=== PATIENT | female | born 1980 | race Hispanic/Latino ===

== ENCOUNTER → 2017-12-03 | Outpatient (CLI) | payer OTHER ==
[~2017-12-03] MED LIST: ESOM40CA PO; LABE100T PO
[2017-12-03 08:09] LABS: BASOPHILS % (AUTO) 0.8 % (0.0-5.0); EOSINOPHILS % (AUTO) 2.5 % (0.0-8.0); MEAN CORPUSCULAR HEMOGLOBIN 28.3 pg (27.0-33.0); MEAN CORPUSCULAR VOLUME 83.3 fL (79-99); MONOCYTES % (AUTO) 8.5 % (3.0-13.0); NEUTROPHILS % (AUTO) 50.2 % (40.0-77.0); PLATELET COUNT (AUTO) 271 K/uL (130-400); RED BLOOD CELL COUNT(AUTO) 4.32 MIL/uL (4.00-5.50); RED CELL DISTRIBUTION WIDTH 13.1 % (11.0-15.5); WHITE BLOOD COUNT (AUTO) 6.8 K/uL (4.8-10.8)
[2017-12-03 08:17] LABS: HEMOGLOBIN A1C 6.1 % (4.0-6.0)
[2017-12-03 08:53] LABS: CREATININE 0.7 mg/dL (0.5-1.5); POTASSIUM 3.6 mmol/L (3.5-5.1)
[2017-12-03 09:07] LABS: ALBUMIN 3.3 g/dL (3.5-5.0); BILIRUBIN,TOTAL 0.3 mg/dL (0.2-1.0); THYROID STIMULATING HORMONE 2.34 uIU/mL (0.36-3.74); TOTAL PROTEIN, SERUM 6.9 g/dL (6.0-8.3)
== END ==
LOC: LAB 07:43
PROVIDERS: ATTEND Nurse Practitioner Adult Health
DX: Z00.00 Encounter for general adult medical examination without abnormal findings (principal)
CPT/HCPCS: 36415; 80053; 80061; 82306; 83036; 84443; 85025

== ENCOUNTER 2019-03-08 05:38 | Day surgery (SDC) | payer BC, OTHER ==
[~2019-03-08] VITALS: Ht 152.4 cm; Wt 97.5 kg
[2019-03-08] VITALS (7 sets, daily range): BP systolic 100–116; BP diastolic 66–75
[~2019-03-08 05:38] MED LIST changes: +ASPI-1181 PO; -ESOM40CA PO; -LABE100T PO; +LABE100T5 PO; +PNV1TABL77 PO
[2019-03-08] MEDS ORDERED: LACTATED RINGERS 1000ML 1,000 ML IV PRN (05:47)
[2019-03-08 06:23] LABS: HEMATOCRIT 39.3 % (36-48); MEAN CORPUSCULAR HEMOGLOBIN 30.2 pg (27.0-33.0); MEAN CORPUSCULAR HGB CONC 33.9 g/dL (32.0-36.0); MEAN CORPUSCULAR VOLUME 89.1 fL (79-99); NUCLEATED RED BLOOD CELLS 0.1 % (0.0-0.19); PLATELET COUNT (AUTO) 279 K/uL (130-400); RED BLOOD CELL COUNT(AUTO) 4.41 MIL/uL (4.00-5.50); RED CELL DISTRIBUTION WIDTH 13.4 % (11.0-15.5); WHITE BLOOD COUNT (AUTO) 6.9 K/uL (4.8-10.8)
[2019-03-08] MEDS ORDERED: PROPOFOL 10 MG/ML 20ML VIAL IV ONE (07:07)
[2019-03-08] MEDS ORDERED: FENTANYL CITRATE PF 50 MCG/1 ML 2ML VIAL ONE (07:07)
[2019-03-08] MEDS ORDERED: LIDOCAINE PF 2% 5ML ABBOJECT ONE (07:07)
[2019-03-08] MEDS ORDERED: CEFAZOLIN SODIUM 1 GM VIAL IVP ONE (07:10)
[2019-03-08] MEDS ORDERED: CEFAZOLIN SODIUM 1 GM VIAL ONE (07:16)
[2019-03-08] MEDS ORDERED: CALDOLOR 800MG+NS 250ML 250 ML IV ONE (07:24)
[2019-03-08] MEDS ORDERED: OXYTOCIN 10 USP UNITS/ML ONE (07:30)
[2019-03-08] MEDS ORDERED: GLYCOPYRROLATE 1 MG/5 ML SYRINGE ONE (07:34)
[2019-03-08] MEDS ORDERED: MEPERIDINE-PF 25 MG/ML SYG ONE (07:57)
--- NOTE | 2019-03-08 08:20 | NUR ---
RECEIVE PT RECEIVED FROM LABOR AND DELIVERY VIA STRETCHER. AWAKE, DROWSY, ORIENTED X3. PT STABLE, COMPLAINS OF SOME CRAMPING, TOLD PT PAIN MED CALDOLOR IS INFUSING, POSITIONED COMFORTABLY. OB PAD DRY AND IN PLACE, VERY SCANT DISCHARGE NOTED. WILL CONTINUE TO MONITOR PT.
--- NOTE | 2019-03-08 09:00 | NUR ---
RESUME HOME MEDS REPORTED TO DR. PARKS PT'S HOME MEDS. PER DR. PARKS, PT MAY RESUME ALL HER HOME MEDICATIONS
[2019-03-08] MEDS ORDERED: METF-444 PO (09:03)
--- NOTE | 2019-03-08 10:20 | NUR ---
DISCHARGE PT DISCHARGED VIA WHEELCHAIR WITH . PT STABLE. NO COMPLAINTS MADE. OB PAD SCANT AMOUNT VAGINAL BLEEDING NOTED. PT TOLERATED ORAL FLUIDS WELL. DISCHARGE INSTRUCTIONS GIVEN TO AND PT, BOTH VERBALIZED UNDERSTANDING.
== END 2019-03-08 10:20 | disposition home or self-care (01) ==
LOC: LDH 05:38 → DTH 05:38 → UNDOADMOB 05:38 → EDSTATUS 09:54 → DTH 10:20
PROVIDERS: ATTEND Obstetrics & Gynecology
DX: O02.1 Missed abortion (principal); I10 Essential (primary) hypertension; Z79.899 Other long term (current) drug therapy; Z98.890 Other specified postprocedural states; E66.01 Morbid (severe) obesity due to excess calories; K21.9 Gastro-esophageal reflux disease without esophagitis
CPT/HCPCS: 36415; 82948; 85027; 86850; 86900; 86901; 88305; A4606; J0690; J1741; J2001; J2175; J2590; J2704; J3010; J3490; J7120

== ENCOUNTER 2020-04-13 07:50 | Day surgery (SDC) | payer BC ==
[~2020-04-13] VITALS: Ht 152.4 cm; Wt 95.0 kg
[2020-04-13] VITALS (17 sets, daily range): BP systolic 110–139; BP diastolic 59–79
[~2020-04-13 07:50] MED LIST changes: -ASPI-1181 PO; +ASPI-1443 PO; +METF-444 PO
[2020-04-13] MEDS ORDERED: CEFAZOLIN SODIUM 1 GM VIAL ONE ×2 (08:40→09:32)
[2020-04-13] MEDS ORDERED: SODIUM CHLORIDE 0.9% 1000ML 0 ML IV ONE (08:42)
[2020-04-13] MEDS ORDERED: CALDOLOR 800MG+NS 250ML 250 ML IV SCH (08:45)
[2020-04-13] MEDS ORDERED: SODIUM CHLORIDE 0.9% 1000ML 1,000 ML IV ONE (08:49)
[2020-04-13 08:53] LABS: BASOPHILS % (AUTO) 0.8 % (0.0-5.0); EOSINOPHILS % (AUTO) 5.7 % (0.0-8.0); HEMATOCRIT 38.4 % (36-48); MEAN CORPUSCULAR HEMOGLOBIN 29.3 pg (27.0-33.0); MEAN CORPUSCULAR HGB CONC 33.1 g/dL (32.0-36.0); MEAN CORPUSCULAR VOLUME 88.5 fL (79-99); MONOCYTES % (AUTO) 8.1 % (3.0-13.0); NEUTROPHILS % (AUTO) 46.1 % (40.0-77.0); PLATELET COUNT (AUTO) 278 K/uL (130-400); RED BLOOD CELL COUNT(AUTO) 4.34 MIL/uL (4.00-5.50); RED CELL DISTRIBUTION WIDTH 12.2 % (11.0-15.5); WHITE BLOOD COUNT (AUTO) 6.3 K/uL (4.8-10.8)
[2020-04-13] MEDS ORDERED: ASCO500T20 PO (09:24)
[2020-04-13] MEDS ORDERED: CHOL400T33 PO (09:24)
[2020-04-13] MEDS ORDERED: DOXY100C2 PO (09:33)
[2020-04-13] MEDS ORDERED: FAMOTIDINE/PF 20 MG/2 ML VIAL IV ONE (10:11)
[2020-04-13] MEDS ORDERED: SUCCINYLCHOLINE CHLORIDE 20 MG/ML 10 ML VIAL ONE (10:16)
[2020-04-13] MEDS ORDERED: LIDOCAINE PF 2% 5ML ABBOJECT ONE (10:16)
[2020-04-13] MEDS ORDERED: ROCURONIUM 10MG/1ML SYR 10 MG/ML ML ONE (10:17)
[2020-04-13] MEDS ORDERED: MIDAZOLAM HCL 1 MG/ML 2ML VIAL ONE (10:17)
[2020-04-13] MEDS ORDERED: ONDANSETRON HCL 4 MG/2 ML VIAL ONE (10:17)
[2020-04-13] MEDS ORDERED: PROPOFOL 10 MG/ML 20ML VIAL IV ONE (10:17)
[2020-04-13] MEDS ORDERED: FENTANYL CITRATE PF 50 MCG/1 ML 2ML VIAL ONE (10:18)
[2020-04-13] MEDS ORDERED: GLYCOPYRROLATE 1 MG/5 ML SYRINGE ONE (10:45)
[2020-04-13] MEDS ORDERED: DEXAMETHASONE SOD PHOSPHATE 10MG/ML 1ML VIAL ONE (10:52)
[2020-04-13] MEDS ORDERED: MEPERIDINE-PF 25 MG/ML SYG ONE (11:48)
--- NOTE | 2020-04-13 12:20 | NUR ---
PATIENT ARRIVED TO DAY PATIENT VIA STRETCHER BY JULIO GARCIA,RN AND DALY ANN RN. PATIENT [id number], RESPIRATIONS UNLABORED, VITAL SIGNS STABLE. DENIES ANY PAIN AT THIS TIME. SHILPA PAD IN PLACE WITH SMALL AMOUNT OF BRIGHT RED BLOOD.
--- NOTE | 2020-04-13 12:40 | NUR ---
DISCHARGE INSTRUCTIONS PROVIDED TO PATIENT'S SPOUSE (KORINA BAUTISTA). INSTRUCTED TO CALL OFFICE FOR FOLLOW UP APPOINTMENT IN 2 WEEKS. PRESCRIPTION PROVIDED AND ALL QUESTIONS/CONCERNS ADDRESSED.
--- NOTE | 2020-04-13 13:05 | NUR ---
PATIENT DISCHARGED FROM FACILITY VIA WHEELCHAIR. PATIENT ASSISTED INTO PRIVATE VEHICLE DRIVEN BY SPOUSE.
== END 2020-04-13 13:05 | disposition home or self-care (01) ==
LOC: DAH 07:50
PROVIDERS: ATTEND Obstetrics & Gynecology
DX: N93.9 Abnormal uterine and vaginal bleeding, unspecified (principal); I10 Essential (primary) hypertension; K21.9 Gastro-esophageal reflux disease without esophagitis; E11.9 Type 2 diabetes mellitus without complications; Z79.899 Other long term (current) drug therapy
CPT/HCPCS: 36415; 58558; 82948 ×2; 84702; 85025; 86850; 86900; 86901; A4215; A4221; A4222; A4223; A4351; A4355; A4663; J0330; J0690 ×2; J1100; J1741; J2001; J2175; J2250; J2405; J2704; J3010; J3490 ×2; J7030 ×2